=== PATIENT | male | born 1940 | race Caucasian/White ===

== ENCOUNTER 2020-12-21 08:28 | Emergency (ER) | payer MEDICARE, OTHER ==
[~2020-12-21] VITALS: Ht 180.3 cm; Wt 97.5 kg
--- NOTE | 2020-12-21 11:19 | EKG ---
[facility] [address] [facility] [place] [address] Signed Sinus bradycardia with 1st degree AV block Rightward axis Nonspecific intraventricular conduction delay Borderline ECG No previous ECGs available Confirmed by SNEHAL STEELE MD ([id number]) on 12/21/2020 11:19:34 AM Electronically Signed By: SNEHAL STEELE MD 12/21/20 1119 PATIENT NAME: DANELLE PARKS BULL Electrocardiogram DATE OF : 40 PHYSICIAN: SNEHAL STEELE MD REPORT #: [id number] REPORT IS CONFIDENTIAL AND NOT TO BE RELEASED WITHOUT AUTHORIZATION
== END 2020-12-21 17:31 | disposition home or self-care (01) ==
LOC: ED 08:28
DX: H53.2 Diplopia (principal); Z20.822 Contact with and (suspected) exposure to COVID-19
CPT/HCPCS: 70450; 70496; 70498; 70551; 71045; 80053; 84484; 85025; 85610; 85651; 85730; 93005; 93010; 99284-25; C9803; Q9967; U0003